=== PATIENT | female | born 1955 | race African-American/Black ===

== ENCOUNTER 2020-01-11 09:31 | Inpatient (IN) ==
[2020-01-11] MEDS ORDERED: PANTOPRAZOLE 40 MG VIAL IV STA (09:46)
[2020-01-11] MEDS ORDERED: ONDANSETRON 4 MG/2 ML VIAL IV STA (09:46)
[2020-01-11] MEDS ORDERED: SODIUM CHLORIDE 0.9% 1,000 ML IV PRN (09:46)
[2020-01-11] MEDS ORDERED: SODIUM CHLORIDE 0.9% 1,000 ML IV STA (09:46)
[2020-01-11 10:05] LABS: Basophils % 0.2 % (0.0-0.8); Immature Granulocytes % 2.4 %; Immature Granulocytes Absolute 0.57 #; Lymphocytes # 1.6 10*3/uL (1.4-4.0); Lymphocytes % 6.5 % (21.3-54.2); Mean Corpuscular HGB Conc 32.1 GM/DL (32-36); Mean Corpuscular Volume 89.7 FL (87-102); Mean Platelet Volume 10.4 FL (9.6-12.0); Monocytes % 6.1 % (1.7-12.7); NRBC # 0.03 10*3/uL; Neutrophils % 84.8 % (38.7-73.9); Platelet Count 250 T/CUMM (130-400); Red Blood Count 1.56 MC/CUMM (3.8-5.5); Red Cell Distribution Width 14.1 % (9.3-17.3); White Blood Count 24.1 T/CUMM (4-12)
[2020-01-11 10:10] LABS: Hemoglobin 4.5 GM/DL (12.0-16.0)
[2020-01-11 10:15] LABS: INR 1.4; Partial Thromboplastin Time 25.9 SECS (23.9-33.8)
[2020-01-11 10:25] LABS: Alanine Aminotransferase 25 U/L (13-56); Albumin 1.8 G/DL (3.4-5.0); Alkaline Phosphatase 93 U/L (45-117); Aspartate Amino Transferase 20 U/L (0-37); Bilirubin,Total < 0.39 MG/DL (0.2-1.0); Blood Urea Nitrogen 41 MG/DL (7-18); Calcium 7.1 MG/DL (8.5-10.1); Estimated Glom Filtration Rate 43 ML/MIN; Glucose 339 MG/DL (74-106); Osmolality,Calculated 303.3 MOS/KG (273-304)
[2020-01-11 10:28] LABS: Band Neutrophils 1 % (0-10); Hypochromasia 2+; Lymphocytes 8 % (20-55); Microcytosis 1+; Platelet Estimate Adequate; Segmented Neutrophils 89 % (50-85); Total Cells Counted 100
[2020-01-11] MEDS ORDERED: hydrALAZINE 20 MG/1 ML VIAL IV PRN (12:48)
[2020-01-11] MEDS ORDERED: DEXTROSE 50% 25 GM/50 ML VIAL IV PRN (12:48)
[2020-01-11] MEDS ORDERED: ACETAMINOPHEN 325 MG TABLET PO PRN (12:48)
[2020-01-11] MEDS ORDERED: GLUCAGON 1 MG VIAL IM PRN (12:48)
[2020-01-11] MEDS ORDERED: PROMETHAZINE 25 MG/1 ML VIAL IM PRN (12:48)
[2020-01-11 13:22] LABS: HDL Cholesterol 18 MG/DL (40-60); Risk Ratio 2.78; Triglycerides 78 MG/DL (2-150); VLDL CHOLESTEROL 15.6 MG/DL
[2020-01-11] MEDS ORDERED: MAGNESIUM SULF RIDER 2 GM in PREMIX 1 EACH IV PRN (13:33)
[2020-01-11] MEDS: CEFEPIME 1,000 MG in SODIUM CHLORIDE 0.9% 100 ML IV SCH ×2 (16:03→20:37)
[2020-01-11] MEDS: LACTATED RINGERS 1,000 ML IV SCH ×2 (16:04→23:27)
[2020-01-11] MEDS: GABAPENTIN 300 MG CAPSULE PO SCH ×2 (16:04→20:35)
[2020-01-11 16:32] LABS: Hematocrit 25.2 VOL% (35.7-47.0); Hemoglobin 8.7 GM/DL (12.0-16.0)
[2020-01-11] MEDS ORDERED: MAGNESIUM SULF RIDER 2 GM in PREMIX 1 EACH IV ONE (16:58)
[2020-01-11] MEDS: INSULIN LISPRO 100 UNIT/ML SUBCUT SCH ×2 (17:46→20:36)
[2020-01-11] MEDS: ONDANSETRON 4 MG/2 ML VIAL IV PRN (17:47)
[2020-01-11 18:30] LABS: Basophils # 0.1 10*3/uL (0.0-0.2); Basophils % 0.3 % (0.0-0.8); Hemoglobin 7.8 GM/DL (12.0-16.0); Immature Granulocytes % 1.4 %; Lymphocytes # 2.1 10*3/uL (1.4-4.0); Lymphocytes % 9.4 % (21.3-54.2); Mean Corpuscular HGB Conc 33.9 GM/DL (32-36); Mean Corpuscular Volume 88.1 FL (87-102); Mean Platelet Volume 10.1 FL (9.6-12.0); Monocytes % 6.6 % (1.7-12.7); NRBC # 0.02 10*3/uL; Neutrophils % 82.3 % (38.7-73.9); Platelet Count 168 T/CUMM (130-400); Red Blood Count 2.61 MC/CUMM (3.8-5.5); Red Cell Distribution Width 13.7 % (9.3-17.3)
[2020-01-11] MEDS ORDERED: SODIUM CHLORIDE 0.9% 1,000 ML IV ONE (18:30)
[2020-01-11 19:24] LABS: Hypochromasia 1+; Lymphocytes 6 % (20-55); Microcytosis Slight; Segmented Neutrophils 92 % (50-85); Total Cells Counted 100
[2020-01-11 19:25] LABS: Hypersegmented Neutrophil 2+; Platelet Estimate Decreased
[2020-01-11] MEDS ORDERED: PHENYLEPHRINE DRIP 40 MG/250 ML PREMIX IV PRN (19:43)
[2020-01-11] MEDS ORDERED: PHENYLEPHRINE DRIP 40 MG/250 ML PREMIX IV ONE (19:46)
[2020-01-11] MEDS: PANTOPRAZOLE 40 MG VIAL IV SCH (20:35)
[2020-01-11] MEDS: INSULIN GLARGINE 100 UNIT/ML SUBCUT SCH (20:36)
[2020-01-11] MEDS: MAGNESIUM SULF RIDER 4 GM in PREMIX 1 EACH IV PRN (23:55)
[2020-01-12 01:26] LABS: Hematocrit 28.9 VOL% (35.7-47.0); Hemoglobin 9.9 GM/DL (12.0-16.0)
[2020-01-12] MEDS: CEFEPIME 1,000 MG in SODIUM CHLORIDE 0.9% 100 ML IV SCH ×4 (03:01→20:44)
[2020-01-12 05:04] LABS: Basophils # 0.2 10*3/uL (0.0-0.2); Basophils % 0.6 % (0.0-0.8); Eosinophils # 0.1 10*3/uL (0.0-0.87); Eosinophils % 0.4 % (0.00-10.9); Hematocrit 29.6 VOL% (35.7-47.0); Hemoglobin 10.1 GM/DL (12.0-16.0); Immature Granulocytes % 1.3 %; Immature Granulocytes Absolute 0.33 #; Lymphocytes # 3.6 10*3/uL (1.4-4.0); Lymphocytes % 14.1 % (21.3-54.2); Mean Corpuscular HGB Conc 34.1 GM/DL (32-36); Mean Corpuscular Volume 89.2 FL (87-102); Mean Platelet Volume 10.4 FL (9.6-12.0); Monocytes % 8.7 % (1.7-12.7); NRBC # 0.04 10*3/uL; Neutrophils % 74.9 % (38.7-73.9); Platelet Count 177 T/CUMM (130-400); Red Blood Count 3.32 MC/CUMM (3.8-5.5); Red Cell Distribution Width 14.4 % (9.3-17.3); White Blood Count 25.7 T/CUMM (4-12)
[2020-01-12 05:27] LABS: Albumin 1.8 G/DL (3.4-5.0); Bilirubin,Total 0.4 MG/DL (0.2-1.0); Calcium 7.1 MG/DL (8.5-10.1); Osmolality,Calculated 301.8 MOS/KG (273-304); Total Protein 3.8 G/DL (6.4-8.3)
[2020-01-12 06:07] LABS: Anisocytosis 1+; Band Neutrophils 2 % (0-10); Eosinophils 1 % (0-10); Lymphocytes 14 % (20-55); Metamyelocytes 1 %; Platelet Estimate Normal; Segmented Neutrophils 75 % (50-85); Total Cells Counted 100
[2020-01-12 06:14] LABS: Smudge Cells 1+
[2020-01-12] MEDS: INSULIN LISPRO 100 UNIT/ML SUBCUT SCH ×4 (07:56→20:44)
[2020-01-12 08:59] LABS: Bilirubin,Urine Negative (Negative); Blood, Urine Negative (Negative); Glucose,Urine (UA) 150 mg/dL (Negative); Ketones,Urine Negative (Negative); Nitrite,Urine Negative (Negative); Protein,Urine Negative; RBC,Urine <1 /HPF (0-4); Squamous Epithelial Cell,Urine Occasional /HPF (0-10); Urine Appearance CLEAR (Clear); Urine Color Yellow (Yellow); Urine Specific Gravity 1.011 (1.001-1.035); Urine Urobilinogen < 2.0 EU/DL (0.2-1.0)
[2020-01-12] MEDS: amLODIPine 5 MG TABLET PO SCH (09:00)
[2020-01-12] MEDS: METOPROLOL SUCCINATE XL 25 MG TABLET PO SCH (09:00)
[2020-01-12] MEDS: PANTOPRAZOLE 40 MG VIAL IV SCH ×2 (09:01→20:42)
[2020-01-12] MEDS: ATORVASTATIN 40 MG TABLET PO SCH (09:01)
[2020-01-12] MEDS: GABAPENTIN 300 MG CAPSULE PO SCH ×3 (09:01→20:42)
[2020-01-12] MEDS ORDERED: MAGNESIUM SULF RIDER 4 GM in PREMIX 1 EACH IV ONE (10:00)
[2020-01-12] MEDS: LACTATED RINGERS 1,000 ML IV SCH (14:00)
[2020-01-12] MEDS: INSULIN GLARGINE 100 UNIT/ML SUBCUT SCH (20:42)
[2020-01-13] MEDS: CEFEPIME 1,000 MG in SODIUM CHLORIDE 0.9% 100 ML IV SCH ×4 (02:38→20:53)
[2020-01-13] MEDS: LACTATED RINGERS 1,000 ML IV SCH ×2 (04:29→18:34)
[2020-01-13 05:21] LABS: Basophils # 0.1 10*3/uL (0.0-0.2); Basophils % 0.7 % (0.0-0.8); Eosinophils # 0.2 10*3/uL (0.0-0.87); Eosinophils % 1.2 % (0.00-10.9); Hematocrit 24.7 VOL% (35.7-47.0); Hemoglobin 8.3 GM/DL (12.0-16.0); Immature Granulocytes % 0.7 %; Lymphocytes # 1.4 10*3/uL (1.4-4.0); Lymphocytes % 9.2 % (21.3-54.2); Mean Corpuscular HGB Conc 33.6 GM/DL (32-36); Mean Corpuscular Volume 89.8 FL (87-102); Mean Platelet Volume 10.1 FL (9.6-12.0); Monocytes % 6.8 % (1.7-12.7); NRBC # 0.02 10*3/uL; Neutrophils % 81.4 % (38.7-73.9); Platelet Count 153 T/CUMM (130-400); Red Blood Count 2.75 MC/CUMM (3.8-5.5); White Blood Count 15.4 T/CUMM (4-12)
[2020-01-13 05:45] LABS: Alanine Aminotransferase 83 U/L (13-56); Albumin 1.6 G/DL (3.4-5.0); Alkaline Phosphatase 80 U/L (45-117); Aspartate Amino Transferase 104 U/L (0-37); Bilirubin,Total < 0.39 MG/DL (0.2-1.0); Blood Urea Nitrogen 34 MG/DL (7-18); Calcium 7.7 MG/DL (8.5-10.1); Estimated Glom Filtration Rate 63 ML/MIN; Glucose 58 MG/DL (74-106); Osmolality,Calculated 291.8 MOS/KG (273-304); Total Protein 3.8 G/DL (6.4-8.3)
[2020-01-13] MEDS: INSULIN LISPRO 100 UNIT/ML SUBCUT SCH ×4 (07:36→20:53)
[2020-01-13] MEDS: amLODIPine 5 MG TABLET PO SCH (09:51)
[2020-01-13] MEDS: ATORVASTATIN 40 MG TABLET PO SCH (09:51)
[2020-01-13] MEDS: METOPROLOL SUCCINATE XL 25 MG TABLET PO SCH (09:51)
[2020-01-13] MEDS: PANTOPRAZOLE 40 MG VIAL IV SCH ×2 (09:51→20:53)
[2020-01-13] MEDS: GABAPENTIN 300 MG CAPSULE PO SCH ×3 (09:51→20:53)
[2020-01-13] MEDS ORDERED: NIFEdipine 10 MG CAPSULE PO PRN (11:00)
[2020-01-13 12:34] LABS: Hematocrit 26.2 VOL% (35.7-47.0); Hemoglobin 8.8 GM/DL (12.0-16.0)
[2020-01-13 19:11] LABS: Hemoglobin 8.4 GM/DL (12.0-16.0)
[2020-01-13] MEDS ORDERED: PHENYLEPHRINE DRIP 40 MG/250 ML PREMIX IV PRN (22:30)
[2020-01-14] MEDS: CEFEPIME 1,000 MG in SODIUM CHLORIDE 0.9% 100 ML IV SCH ×4 (01:38→20:37)
[2020-01-14 01:40] LABS: Hematocrit 23.4 VOL% (35.7-47.0)
[2020-01-14 04:40] LABS: Basophils # 0.1 10*3/uL (0.0-0.2); Basophils % 0.7 % (0.0-0.8); Eosinophils # 0.1 10*3/uL (0.0-0.87); Eosinophils % 1.1 % (0.00-10.9); Hematocrit 22.5 VOL% (35.7-47.0); Hemoglobin 7.4 GM/DL (12.0-16.0); Immature Granulocytes % 0.6 %; Immature Granulocytes Absolute 0.07 #; Lymphocytes # 1.4 10*3/uL (1.4-4.0); Lymphocytes % 12.4 % (21.3-54.2); Mean Corpuscular HGB Conc 32.9 GM/DL (32-36); Mean Corpuscular Volume 91.8 FL (87-102); Mean Platelet Volume 9.8 FL (9.6-12.0); Monocytes % 8.8 % (1.7-12.7); Neutrophils % 76.4 % (38.7-73.9); Platelet Count 142 T/CUMM (130-400); Red Blood Count 2.45 MC/CUMM (3.8-5.5); Red Cell Distribution Width 14.8 % (9.3-17.3); White Blood Count 11.4 T/CUMM (4-12)
[2020-01-14 05:00] LABS: Calcium 7.6 MG/DL (8.5-10.1); Osmolality,Calculated 289.1 MOS/KG (273-304)
[2020-01-14] MEDS: INSULIN LISPRO 100 UNIT/ML SUBCUT SCH ×4 (07:30→20:37)
[2020-01-14] MEDS: LACTATED RINGERS 1,000 ML IV SCH ×2 (07:50→21:26)
[2020-01-14] MEDS: GABAPENTIN 300 MG CAPSULE PO SCH ×3 (08:20→20:37)
[2020-01-14] MEDS: ATORVASTATIN 40 MG TABLET PO SCH (08:20)
[2020-01-14] MEDS: PANTOPRAZOLE 40 MG VIAL IV SCH ×2 (08:20→20:37)
[2020-01-14] MEDS: amLODIPine 5 MG TABLET PO SCH (09:00)
[2020-01-14] MEDS: METOPROLOL SUCCINATE XL 25 MG TABLET PO SCH (09:00)
[2020-01-15] MEDS: CEFEPIME 1,000 MG in SODIUM CHLORIDE 0.9% 100 ML IV SCH ×2 (02:05→08:16)
[2020-01-15 04:34] LABS: Basophils # 0.1 10*3/uL (0.0-0.2); Basophils % 0.5 % (0.0-0.8); Eosinophils # 0.1 10*3/uL (0.0-0.87); Eosinophils % 0.9 % (0.00-10.9); Hematocrit 30.8 VOL% (35.7-47.0); Hemoglobin 10.3 GM/DL (12.0-16.0); Immature Granulocytes % 0.3 %; Immature Granulocytes Absolute 0.04 #; Lymphocytes % 7.9 % (21.3-54.2); Mean Corpuscular HGB Conc 33.4 GM/DL (32-36); Mean Corpuscular Volume 90.3 FL (87-102); Monocytes % 8.2 % (1.7-12.7); Neutrophils % 82.2 % (38.7-73.9); Platelet Count 144 T/CUMM (130-400); Red Blood Count 3.41 MC/CUMM (3.8-5.5); Red Cell Distribution Width 14.3 % (9.3-17.3); White Blood Count 12.1 T/CUMM (4-12)
[2020-01-15 04:50] LABS: Osmolality,Calculated 288.8 MOS/KG (273-304)
[2020-01-15] MEDS: MAGNESIUM SULF RIDER 4 GM in PREMIX 1 EACH IV PRN (05:30)
[2020-01-15] MEDS: INSULIN LISPRO 100 UNIT/ML SUBCUT SCH ×3 (08:03→15:58)
[2020-01-15] MEDS: PANTOPRAZOLE 40 MG VIAL IV SCH (08:14)
[2020-01-15] MEDS: METOPROLOL SUCCINATE XL 25 MG TABLET PO SCH (08:15)
[2020-01-15] MEDS: GABAPENTIN 300 MG CAPSULE PO SCH ×2 (08:15→14:42)
[2020-01-15] MEDS: amLODIPine 5 MG TABLET PO SCH (08:15)
[2020-01-15] MEDS: ATORVASTATIN 40 MG TABLET PO SCH (08:16)
[2020-01-15] MEDS ORDERED: MAGNESIUM SULF RIDER 2 GM in PREMIX 1 EACH IV ONE (08:33)
[2020-01-15] MEDS: ONDANSETRON 4 MG/2 ML VIAL IV PRN (08:44)
[2020-01-15] MEDS: cefTRIAXone 1,000 MG in SYRINGE 1 EACH IV SCH (11:13)
[2020-01-15] MEDS: LACTATED RINGERS 1,000 ML IV SCH (12:20)
[2020-01-16 04:51] LABS: Basophils # 0.1 10*3/uL (0.0-0.2); Basophils % 0.8 % (0.0-0.8); Eosinophils # 0.1 10*3/uL (0.0-0.87); Eosinophils % 1.1 % (0.00-10.9); Hemoglobin 11.1 GM/DL (12.0-16.0); Immature Granulocytes % 0.4 %; Immature Granulocytes Absolute 0.05 #; Lymphocytes # 1.6 10*3/uL (1.4-4.0); Mean Corpuscular HGB Conc 33.6 GM/DL (32-36); Mean Corpuscular Volume 89.7 FL (87-102); Mean Platelet Volume 9.9 FL (9.6-12.0); Monocytes % 10.8 % (1.7-12.7); Neutrophils % 74.9 % (38.7-73.9); Platelet Count 162 T/CUMM (130-400); Red Blood Count 3.68 MC/CUMM (3.8-5.5); Red Cell Distribution Width 14.1 % (9.3-17.3); White Blood Count 13.2 T/CUMM (4-12)
[2020-01-16 05:09] LABS: Calcium 8.3 MG/DL (8.5-10.1); Osmolality,Calculated 280.3 MOS/KG (273-304)
[2020-01-16] MEDS: INSULIN LISPRO 100 UNIT/ML SUBCUT SCH ×5 (07:05→22:25)
[2020-01-16] MEDS: PANTOPRAZOLE 40 MG VIAL IV SCH ×3 (07:07→22:26)
[2020-01-16] MEDS: GABAPENTIN 300 MG CAPSULE PO SCH ×4 (07:07→22:25)
[2020-01-16] MEDS: METOPROLOL SUCCINATE XL 25 MG TABLET PO SCH (09:49)
[2020-01-16] MEDS: ATORVASTATIN 40 MG TABLET PO SCH (09:50)
[2020-01-16] MEDS: amLODIPine 5 MG TABLET PO SCH (09:50)
[2020-01-16] MEDS: cefTRIAXone 1,000 MG in SYRINGE 1 EACH IV SCH (10:04)
[2020-01-16] MEDS: LACTATED RINGERS 1,000 ML IV SCH (11:18)
[2020-01-16] MEDS ORDERED: BISACODYL 5 MG TABLET PO ONE (12:00)
[2020-01-16] MEDS ORDERED: propofoL 200 MG/20 ML VIAL IV ONE (12:18)
[2020-01-16] MEDS ORDERED: LIDOCAINE 2% 5 ML VIAL ONE (12:18)
[2020-01-16] MEDS ORDERED: POLYETHYLENE GLYCOL POWDER 255 GM BOTTLE PO ONE (18:00)
[2020-01-17 05:31] LABS: Basophils # 0.1 10*3/uL (0.0-0.2); Basophils % 0.7 % (0.0-0.8); Eosinophils # 0.2 10*3/uL (0.0-0.87); Eosinophils % 1.4 % (0.00-10.9); Hematocrit 37.2 VOL% (35.7-47.0); Hemoglobin 12.4 GM/DL (12.0-16.0); Immature Granulocytes % 0.5 %; Immature Granulocytes Absolute 0.06 #; Lymphocytes # 2.1 10*3/uL (1.4-4.0); Lymphocytes % 15.8 % (21.3-54.2); Mean Corpuscular HGB Conc 33.3 GM/DL (32-36); Mean Corpuscular Volume 90.7 FL (87-102); Mean Platelet Volume 10.2 FL (9.6-12.0); Monocytes % 9.9 % (1.7-12.7); Neutrophils % 71.7 % (38.7-73.9); Platelet Count 220 T/CUMM (130-400); Red Cell Distribution Width 14.2 % (9.3-17.3); White Blood Count 13.1 T/CUMM (4-12)
[2020-01-17 05:55] LABS: Calcium 8.5 MG/DL (8.5-10.1); Osmolality,Calculated 279.1 MOS/KG (273-304)
[2020-01-17] MEDS: INSULIN LISPRO 100 UNIT/ML SUBCUT SCH ×4 (07:51→21:05)
[2020-01-17] MEDS: amLODIPine 5 MG TABLET PO SCH (09:54)
[2020-01-17] MEDS: ATORVASTATIN 40 MG TABLET PO SCH (09:54)
[2020-01-17] MEDS: GABAPENTIN 300 MG CAPSULE PO SCH ×3 (09:54→21:11)
[2020-01-17] MEDS: METOPROLOL SUCCINATE XL 25 MG TABLET PO SCH (09:55)
[2020-01-17] MEDS ORDERED: LACTATED RINGERS 1,000 ML IV SCH (10:11)
[2020-01-17] MEDS ORDERED: LIDOCAINE 2% 5 ML VIAL ONE (11:15)
[2020-01-17] MEDS ORDERED: propofoL 200 MG/20 ML VIAL IV ONE ×2 (11:15→12:06)
[2020-01-17] MEDS: PANTOPRAZOLE 40 MG VIAL IV SCH ×2 (12:28→21:11)
[2020-01-17] MEDS: LACTATED RINGERS 1,000 ML IV SCH (12:36)
[2020-01-17] MEDS: cefTRIAXone 1,000 MG in SYRINGE 1 EACH IV SCH (12:37)
[2020-01-17] MEDS: MENTHOL/ZINC OXIDE OINT 71 GM JAR TOP SCH (15:38)
[2020-01-18 06:26] LABS: Basophils # 0.1 10*3/uL (0.0-0.2); Basophils % 1.1 % (0.0-0.8); Eosinophils # 0.2 10*3/uL (0.0-0.87); Eosinophils % 1.6 % (0.00-10.9); Hematocrit 30.3 VOL% (35.7-47.0); Hemoglobin 10.3 GM/DL (12.0-16.0); Immature Granulocytes % 0.5 %; Immature Granulocytes Absolute 0.05 #; Lymphocytes # 1.6 10*3/uL (1.4-4.0); Mean Corpuscular Volume 88.9 FL (87-102); Mean Platelet Volume 9.9 FL (9.6-12.0); Monocytes % 11.1 % (1.7-12.7); Neutrophils % 69.7 % (38.7-73.9); Platelet Count 187 T/CUMM (130-400); Red Blood Count 3.41 MC/CUMM (3.8-5.5); Red Cell Distribution Width 14.5 % (9.3-17.3); White Blood Count 9.9 T/CUMM (4-12)
[2020-01-18 06:33] LABS: Calcium 8.4 MG/DL (8.5-10.1)
[2020-01-18 06:38] LABS: Osmolality,Calculated 277.3 MOS/KG (273-304)
[2020-01-18] MEDS: INSULIN LISPRO 100 UNIT/ML SUBCUT SCH ×2 (08:17→12:16)
[2020-01-18] MEDS: GABAPENTIN 300 MG CAPSULE PO SCH (08:19)
[2020-01-18] MEDS: ATORVASTATIN 40 MG TABLET PO SCH (08:19)
[2020-01-18] MEDS: cefTRIAXone 1,000 MG in SYRINGE 1 EACH IV SCH (08:21)
[2020-01-18] MEDS: METOPROLOL SUCCINATE XL 25 MG TABLET PO SCH (08:22)
[2020-01-18] MEDS: amLODIPine 5 MG TABLET PO SCH (08:22)
[2020-01-18] MEDS: PANTOPRAZOLE 40 MG VIAL IV SCH (08:22)
[2020-01-18] MEDS: MENTHOL/ZINC OXIDE OINT 71 GM JAR TOP SCH (08:23)
[2020-01-18 11:25] VITALS: BP 91/59
[2020-01-18] MEDS ORDERED: BISACODYL 5 MG TABLET PO ONE (12:00)
[2020-01-18] MEDS ORDERED: POLYETHYLENE GLYCOL POWDER 255 GM BOTTLE PO ONE (18:00)
== END 2020-01-18 12:43 | disposition home or self-care (01) | DRG 813 ==
LOC: EDBD → EDUNIT# → N.ED 09:31 → N.EDINP 12:17 → SUATTDRO 12:17 → N.4E 13:16 → N.ICU 18:52 → N.3E 01-15 12:10
PROVIDERS: ADMIT Internal Medicine; ATTEND Internal Medicine